=== PATIENT | female | born 1955 | race African-American/Black ===

== ENCOUNTER 2024-12-25 01:52 | Emergency (ER) | payer MEDICARE ==
[~2024-12-25] VITALS: Ht 167.6 cm; Wt 64.0 kg
[2024-12-25 01:57] VITALS: BP 125/88; PULSE 98; RESP 16; TEMP 36.7; O2SAT 100
[2024-12-25] MEDS: ACETAMINOPHEN 325MG TABLET PO ONE (04:06)
== END 2024-12-25 04:17 | disposition left against medical advice (07) ==
LOC: ER 01:52
DX: R60.0 Localized edema (principal); R51.9 Headache, unspecified
CPT/HCPCS: 93971; 99284